=== PATIENT | male | born 1985 | race Caucasian/White ===

== ENCOUNTER 2017-10-03 18:40 | Emergency (ER) | payer SELFPAY ==
[~2017-10-03] VITALS: Ht 182.9 cm; Wt 114.2 kg
[2017-10-03] MEDS ORDERED: IBUPROFEN 600 MG TABLET. PO ONE (19:15)
[2017-10-03] MEDS ORDERED: AZITHROMYCIN 250 MG TABLET. PO ONE (19:15)
[2017-10-03 19:20] VITALS: BP 139/71
[2017-10-03] MEDS ORDERED: IBUP600T16 PO (19:20)
[2017-10-03] MEDS ORDERED: AZIT250T6 PO (19:20)
--- NOTE | 2017-10-03 19:21 | PHYS DOC ---
Past History Additional Past Medical Histor: herniated disc Additional Past Surgical Histo: back surgery Adult General Chief Complaint Chief Complaint: MULTIPLE COMPLAINTS HPI HPI Patient is a 31 year old male who presents with complaint of chills, fever, sore throat, and body aches. Patient states that his symptoms have been present for the past 6 days. The patient notes that he has had worsening sore throat and the past 2 days. The patient noted when he looked in the mirror that his tonsils appear swollen and red. Patient denies cough or shortness of breath. The patient has taken Tylenol at home with no significant relief in symptoms. Denies any known sick contacts. Review of Systems Review of Systems Constitutional: Fever, fatigue, chills[] Eyes: Denies change in visual acuity, redness, or eye pain [] HENT: Sore throat[] Respiratory: Denies cough or shortness of breath [] Cardiovascular: Denies chest pain or edema[] GI: Denies abdominal pain, nausea, vomiting, bloody stools or diarrhea [] : Denies dysuria or hematuria [] Musculoskeletal: Myalgias[] Integument: Denies rash or skin lesions [] Neurologic: Denies headache, focal weakness or sensory changes [] All other systems were reviewed and found to be within normal limits, except as documented in this note. Allergies Allergies Allergies Coded Allergies Type Severity Reaction Last Updated Verified Penicillins Allergy Unknown 10/03/17 Yes Physical Exam Physical Exam Constitutional: Alert,[] HENT: Normocephalic, atraumatic, bilateral external ears normal, oropharynx is erythematous with mild tonsillar hypertrophy, petechial hemorrhages to soft palate, tonsillar exudates present, nose normal. [] Eyes: PERRLA, EOMI, conjunctiva normal, no discharge. [] Neck: Normal range of motion, no tenderness, supple, no stridor. [] Cardiovascular:Heart rate regular rhythm, no murmur [] Lungs & Thorax: Bilateral breath sounds clear to auscultation [] Abdomen: Bowel sounds normal, soft, no tenderness, no masses, no pulsatile masses. [] Skin: Warm, dry, no erythema, no rash. [] Back: No tenderness, no CVA tenderness. [] Extremities: No tenderness, no cyanosis, no clubbing, ROM intact, no edema. [] Neurologic: Alert and oriented X 3, normal motor function, normal sensory function, no focal deficits noted. [] Current Patient Data Vital Signs Temperature 98.6 Heart rate 84 Blood pressure 147/92 Respirations 18 Pulse oximetry 98% on room air Lab Results Rapid strep test: Positive EKG EKG Not performed[] Radiology/Procedures Radiology/Procedures Not performed[] Course & Med Decision Making Course & Med Decision Making Pertinent Labs and Imaging studies reviewed. (See chart for details) The patient was treated with ibuprofen and 500 mg of oral azithromycin as patient has penicillin allergy. Will continue on an additional 4 days of azithromycin for treatment of strep pharyngitis. The patient's blood pressure was noted to be mildly elevated today. It was recommended the patient follow-up the primary doctor to have his blood pressure rechecked to see if he would need any further treatment for possible hypertension. Advised follow-up with primary doctor in the next 5 days if symptoms are not improving and return to emergency department for any worsening symptoms. Patient voiced understanding and in agreement with treatment plan. Dragon Disclaimer Dragon Disclaimer This electronic medical record was generated, in whole or in part, using a voice recognition dictation system. Departure Departure: Impression: Primary Impression: Strep pharyngitis Disposition: HOME, SELF-CARE Condition: IMPROVED Referrals: [facility] (PCP) Patient Instructions: Strep Throat Additional Instructions: Follow-up with her primary doctor in 5 days if symptoms are not improving. You received the first dose of your antibiotic at today's visit. Your next dose of antibiotic will be due tomorrow evening at dinnertime. Be sure to take all of the antibiotic as prescribed. Return to the emergency department for any worsening symptoms. Scripts Ibuprofen (IBUPROFEN) 600 Mg Tablet 600 MG PO Q6HRS PRN for PAIN, #30 TAB Prov: KRISTOFER FRANCO MD 10/03/17 Azithromycin (AZITHROMYCIN TABLET) 250 Mg Tablet 500 MG PO DAILY for ANTI-BIOTIC for 4 Days, #8 TAB 0 Refills take the first dose on the evening of 10/04/17. Prov: KRISTOFER FRANCO MD 10/03/17 KRISTOFER FRANCO MD Oct 03, 2017 19:20
== END 2017-10-03 19:27 | disposition home or self-care (01) ==
LOC: ER 18:40
DX: J02.0 Streptococcal pharyngitis (principal); B95.5 Unspecified streptococcus as the cause of diseases classified elsewhere; J35.1 Hypertrophy of tonsils; R23.3 Spontaneous ecchymoses; Z88.0 Allergy status to penicillin
CPT/HCPCS: 87880; 99283; J0456